=== PATIENT | female | born 1995 | race Caucasian/White ===

== ENCOUNTER 2016-12-20 22:15 | Emergency (ER) | payer SELFPAY ==
[2016-12-20 22:20] VITALS: TEMP 98.8
[2016-12-20] MEDS ORDERED: ACETAMINOPHEN 500 MG TAB PO ONE (22:54)
--- NOTE | 2016-12-20 22:57 | EDPHY ---
H & P Stated Complaint: PERRY; 13 weeks Time Seen by Provider: 12/20/16 22:43 HPI/ROS: HPI The patient presents with headache which has been present for the last 2 days which started slowly and has been constant ever since. It is a pressure like sensation that she feels mostly in her occipital region and is bandlike. She has not taken anything for the pain. She is 13 weeks and has had some nausea and vomiting with the , however it is worse over the last 2 days. She has had some difficulty sleeping because of the headache. She does not have any vision changes, photophobia, fever. She has had no complications in her . She has had a history of headaches, however this is in a different location than usual. She had an episode 2 days ago when her left hand had tingling to it, however this is resolved.. REVIEW OF SYSTEMS Constitutional: No fever, no chills. Eyes: No discharge. ENT: No sore throat. Cardiovascular: No chest pain, no palpitations. Respiratory: No cough, no shortness of breath. Gastrointestinal: No abdominal pain, no vomiting. Genitourinary: No hematuria. Musculoskeletal: No back pain. Skin: No rashes. Neurological: Positive for headache. PMHx: 13 week Soc Hx: Housed PHYSICAL General Appearance: Alert, no distress Eyes: Pupils equal and round no pallor or injection ENT, Mouth: Mucous membranes moist Respiratory: There are no retractions, lungs are clear to auscultation Cardiovascular: Regular rate and rhythm Gastrointestinal: Abdomen is soft and non-tender, no masses, bowel sounds normal Neurological: A&O, cranial nerves 2-12 intact, 5/5 strength of her upper and lower extremities which is symmetric, sensation is intact to light touch, normal finger to nose and heel to espinosa testing Skin: Warm and dry, no rashes Musculoskeletal: Neck is supple non tender Extremities: symmetrical, full range of motion Psychiatric: Patient is oriented X 3, there is no agitation Source: Patient Exam Limitations: No limitations - Personal History EDC: 06/23/17 Current Tetanus/Diphtheria Vaccine: Unsure Tetanus Vaccine Date: < 10 years - Medical/Surgical History Hx Asthma: No Hx Chronic Respiratory Disease: No Hx Diabetes: No Hx Cardiac Disease: No Hx Renal Disease: No Hx Cirrhosis: No Hx Alcoholism: No Hx HIV/AIDS: No Hx Splenectomy or Spleen Trauma: No Other PMH: medical none. surgery none - Social History Smoking Status: Never smoked Constitutional: Initial Vital Signs Temperature (C) 37.1 C 12/20/16 22:17 Heart Rate 112 H 12/20/16 22:17 Respiratory Rate 17 12/20/16 22:17 Blood Pressure 135/89 H 12/20/16 22:17 O2 Sat (%) 98 12/20/16 22:17 O2 Delivery Mode Room Air Allergies/Adverse Reactions: No Known Allergies Allergy (Verified 06/18/16 20:51) Home Medications: Medication Instructions Recorded 12/20/16 Medical Decision Making Differential Diagnosis: This is a 21-year-old female, 13 weeks who presents with headache which started slowly 3 days ago and has been constant ever since. It is a pressure like sensation in her posterior occipital region. She has a normal neurologic evaluation. She does not have any vision changes. She does have vomiting, though she has had this throughout her . Differential diagnosis includes tension type headache, migraine headache, less likely sinus venous thrombosis given normal neurologic evaluation. The patient declined a trigger-point injection. She would like to try a dose of Tylenol here. The patient improved after receiving Tylenol, she felt well enough to go home. I have encouraged her to drink plenty of fluids and take Tylenol as needed for headache. If she develops any concerning symptoms such as hand weakness, she is to return to the emergency room immediately. - Data Points Medications Given: Discontinued Medications Acetaminophen (Tylenol) 1,000 mg PO EDNOW ONE Stop: 12/20/16 22:55 Last Admin: 12/20/16 23:05 Dose: 1,000 mg Departure - Departure Disposition: Home, Routine, Self-Care Clinical Impression: Headache in Condition: Good Instructions: Tension Headache (ED) Additional Instructions: You can take Tylenol as needed for your headache. You should return to the emergency room if your worse in any way. Please follow-up with your primary care doctor in 1-2 days. Referrals: Analisa Beaver MD [Primary Care Provider] - As per Instructions
[2016-12-20 23:41] VITALS: BP 127/89; PULSE 80; RESP 16; O2SAT 97
== END 2016-12-20 23:51 | disposition home or self-care (01) ==
DX: O99.89 Other specified diseases and conditions complicating pregnancy, childbirth and the puerperium (principal); R51 Headache; Z3A.13 13 weeks gestation of pregnancy

== ENCOUNTER → 2017-02-10 | Outpatient (CLI) | payer MEDICAID | LOC: FIMAGING 10:08 | PROVIDERS: ATTEND Family Medicine | DX: Z34.92 Encounter for supervision of normal pregnancy, unspecified, second trimester (principal); Z3A.19 19 weeks gestation of pregnancy ==

== ENCOUNTER 2017-09-06 22:43 | Observation (INO) | payer MEDICAID ==
[2017-09-06] MEDS ORDERED: NS 1,000 ML IV ONE ×2 (23:03→23:04)
[2017-09-06] MEDS ORDERED: ACETAMINOPHEN 500 MG TAB PO ONE (23:41)
[2017-09-06 23:52] LABS: PLATELET COUNT 204 10^3/uL (150-400)
[2017-09-07] MEDS ORDERED: VANCOMYCIN 1.25 GM in D5W 250 ML IV ONE (00:16)
[2017-09-07] MEDS ORDERED: VANCOMYCIN 1.25 GM in NS 250 ML IV ONE (01:00)
[2017-09-07] MEDS ORDERED: NS 1,000 ML IV ONE (01:27)
[2017-09-07] MEDS ORDERED: CLINDAMYCIN 600 MG/DEXTROSE 50 ML IV ONE (01:27)
[2017-09-07] MEDS ORDERED: ONDANSETRON 4 MG/2 ML VIAL IVP PRN (02:43)
--- NOTE | 2017-09-07 03:15 | PDGENHP ---
History and Physical - Chief Complaint Left breast pain and swelling - History of Present Illness Source-patient provides history appears reliable. EMR was reviewed and case discussed with ED provider. HPI-pleasant 21-year-old female with no significant past medical history presents to the emergency department today with complaints of worsening left breast pain swelling and redness. Patient reports that she started to have symptoms earlier this morning. She subsequently developed fevers chills and some mild nausea. She the decreased oral intake as well on but has been able to keep food down. Patient denies any change in quality or color of her milk production. She does report that she had area of increased warmth and firmness over the left medial breast. It was tender to palpation. Patient reports some mild headache. No lightheadedness. History Information - Allergies/Home Medication List Allergies/Adverse Reactions: No Known Allergies Allergy (Verified 06/18/16 20:51) Home Medications: 12/20/16 [Last Taken Unknown] I have personally reviewed and updated: family history, medical history, social history, surgical history - Past Medical History no pertinent PMH - Surgical History Reports: no pertinent surgical hx - Family History Positive for: diabetes type II (Mother) - Social History Smoking Status: Never smoked Alcohol Use: None Drug Use: None Additional social history: Patient lives with her and children. Core- full Review of Systems Review of Systems: ROS: 10pt was reviewed & negative except for what was stated in HPI & below Physical Exam Physical Exam: Selected Entries 09/06/17 22:47 Blood Pressure Automatic Method Heart Rate 149 H Respiratory 20 Rate O2 Sat (%) 96 Temperature (C) 39.5 C H Blood Pressure 110/85 H Mean Arterial 93 Pressure (MAP) O2 Delivery Room Air Mode Temperature Oral Source Temp Pulse Resp BP Pulse Ox 37.9 C 125 H 20 118/67 94 09/07/17 01:57 09/07/17 01:57 09/07/17 01:57 09/07/17 01:57 09/07/17 01:57 Constitutional: no apparent distress, appears nourished, uncomfortable Eyes: PERRL, anicteric sclera, EOMI Ears, Nose, Mouth, Throat: dry mucous membranes, other (No nasal discharge), No poor dentition Cardiovascular: no murmur, rub, or gallop, tachycardia, No edema Peripheral Pulses: 2+: dorsalis-pedis (R), dorsalis-pedis (L) Respiratory: no respiratory distress, clear to auscultation Gastrointestinal: normoactive bowel sounds, soft, non-tender abdomen, no palpable masses Genitourinary: no bladder tenderness, No bowling in urethra Skin: warm, normal color, no rashes or abrasions, erythema (Left medial breast with a slight area of erythema faintly. ) Musculoskeletal: full muscle strength, no muscle tenderness, No generalized weakness Neurologic: AAOx3, sensation intact bilaterally, other (Nonfocal), No facial droop Psychiatric: interacting appropriately, not anxious, not encephalopathic, thought process linear Lab Data & Imaging Review 09/06/17 23:05 09/06/17 23:05 WBC 16.91 10^3/uL (3.80-9.50) H 09/06/17 23:05 RBC 4.88 10^6/uL (4.18-5.33) 09/06/17 23:05 Hgb 14.3 g/dL (12.6-16.3) 09/06/17 23:05 Hct 41.5 % (38.0-47.0) 09/06/17 23:05 MCV 85.0 fL (81.5-99.8) 09/06/17 23:05 MCH 29.3 pg (27.9-34.1) 09/06/17 23:05 MCHC 34.5 g/dL (32.4-36.7) 09/06/17 23:05 RDW 12.7 % (11.5-15.2) 09/06/17 23:05 Plt Count 204 10^3/uL (150-400) 09/06/17 23:05 MPV 12.9 fL (8.7-11.7) H 09/06/17 23:05 Neut % (Auto) 85.9 % (39.3-74.2) H 09/06/17 23:05 Lymph % (Auto) 8.8 % (15.0-45.0) L 09/06/17 23:05 Dewitt % (Auto) 4.6 % (4.5-13.0) 09/06/17 23:05 Eos % (Auto) 0.0 % (0.6-7.6) L 09/06/17 23:05 Baso % (Auto) 0.3 % (0.3-1.7) 09/06/17 23:05 Nucleat RBC Rel Count 0.0 % (0.0-0.2) 09/06/17 23:05 Absolute Neuts (auto) 14.52 10^3/uL (1.70-6.50) H 09/06/17 23:05 Absolute Lymphs (auto) 1.49 10^3/uL (1.00-3.00) 09/06/17 23:05 Absolute Monos (auto) 0.78 10^3/uL (0.30-0.80) 09/06/17 23:05 Absolute Eos (auto) 0.00 10^3/uL (0.03-0.40) L 09/06/17 23:05 Absolute Basos (auto) 0.05 10^3/uL (0.02-0.10) 09/06/17 23:05 Absolute Nucleated RBC 0.00 10^3/uL (0-0.01) 09/06/17 23:05 Immature Gran % 0.4 % (0.0-1.1) 09/06/17 23:05 Immature Gran # 0.07 10^3/uL (0.00-0.10) 09/06/17 23:05 VBG Lactic Acid 0.8 mmol/L (0.7-2.1) 09/07/17 02:55 Sodium 144 mEq/L (135-145) 09/06/17 23:05 Potassium 3.9 mEq/L (3.5-5.2) 09/06/17 23:05 Chloride 106 mEq/L (97-110) 09/06/17 23:05 Carbon Dioxide 22 mEq/l (22-31) 09/06/17 23:05 Anion Gap 16 mEq/L (8-16) 09/06/17 23:05 BUN 16 mg/dL (7-23) 09/06/17 23:05 Creatinine 0.8 mg/dL (0.6-1.0) 09/06/17 23:05 Estimated GFR > 60 09/06/17 23:05 Glucose 98 mg/dL (70-100) 09/06/17 23:05 Calcium 9.3 mg/dL (8.5-10.4) 09/06/17 23:05 Total Bilirubin 0.7 mg/dL (0.1-1.4) 09/06/17 23:05 AST 21 IU/L (14-46) 09/06/17 23:05 ALT 19 IU/L (9-52) 09/06/17 23:05 Alkaline Phosphatase 106 IU/L (38-126) 09/06/17 23:05 Total Protein 8.6 g/dL (6.3-8.2) H 09/06/17 23:05 Albumin 4.9 g/dL (3.5-5.0) 09/06/17 23:05 EKG additional interpertation: Tele showing sinus tachycardia in the 120s Assessment & Plan Assessment: Left mastitis - patient received initial dose of vancomycin. She is reporting improvement in her erythema and symptoms but pain is still persistent. She did experience diffuse pruritus without any rash following administration of vancomycin. She responded well to Benadryl. She had no evidence of red man syndrome. Antibiotics were changed to clindamycin. SIRS criteria-patient tachycardic with leukocytosis. Lactate is pending. Patient received 3 L IV fluid continues to remain tachycardic. Antibiotics and treatment plan as noted above. Breast feeding - discussed with patient options for pain management she is amenable to Tylenol and ibuprofen. Advised if pain worsens or she would desire something a little stronger than would recommend that she other hold off on breast feeding or pump and dump. FEN - status post 3 L IV fluid. Will continue IV hydration overnight. Electrolyte monitoring replacement if needed. Diet as tolerated. PPX - SCDs. Patient low risk for DVT. Encourage mobilization anticipate short hospital stay. COR - full Dispo - patient admitted observation status on the medical floor given her continued tachycardia status post IV fluids and need for IV antibiotics.
[2017-09-07] MEDS ORDERED: IBUPROFEN 600 MG TAB PO ONE ×2 (03:35)
[2017-09-07] MEDS: NS 1,000 ML IV SCH ×2 (04:18→22:00)
[2017-09-07] MEDS: CLINDAMYCIN 600 MG/DEXTROSE 50 ML IV SCH ×3 (10:15→22:00)
[2017-09-07] MEDS: IBUPROFEN 600 MG TAB PO PRN ×3 (10:16→23:49)
[2017-09-07] MEDS: ACETAMINOPHEN 325 MG TAB PO PRN ×2 (10:16→19:54)
--- NOTE | 2017-09-07 14:06 | HOSPPROG ---
Hospitalist Progress Note Assessment/Plan: 21y female with breast pain. Left mastitis - patient received initial dose of vancomycin. She is reporting improvement in her erythema and symptoms but pain is still persistent. She did experience diffuse pruritus without any rash following administration of vancomycin. She responded well to Benadryl. She had no evidence of red man syndrome. Antibiotics were changed to clindamycin. Blister- on nipple after pumping. wound care ordered SIRS criteria-patient tachycardic with leukocytosis. Patient received 3 L IV fluid continues to remain tachycardic. Antibiotics and treatment plan as noted above. Breast feeding - discussed with patient options for pain management she is amenable to Tylenol and ibuprofen. Advised if pain worsens or she would desire something a little stronger than would recommend that she other hold off on breast feeding or pump and dump. FEN - status post 3 L IV fluid. Electrolyte monitoring replacement if needed. Diet as tolerated. PPX - SCDs. Patient low risk for DVT. Encourage mobilization anticipate short hospital stay. COR - full Dispo - patient admitted observation status on the medical floor given her continued tachycardia status post IV fluids and need for IV antibiotics. Subjective: Feeling ok. Still having some pain. Objective: Vital Signs Temp Pulse Resp BP Pulse Ox 36.6 C 100 16 128/73 H 98 09/07/17 12:20 09/07/17 12:20 09/07/17 12:20 09/07/17 12:20 09/07/17 08:11 09/06/17 09/07/17 09/08/17 05:59 05:59 05:59 Intake Total 2800 Balance 2800 - Physical Exam Constitutional: no apparent distress, appears nourished Eyes: PERRL, anicteric sclera Ears, Nose, Mouth, Throat: moist mucous membranes, hearing normal Cardiovascular: No JVD, No edema Respiratory: no respiratory distress, no rales or rhonchi Gastrointestinal: No tenderness, No ascites Skin: warm, erythema Musculoskeletal: full muscle strength, no joint effusions Neurologic: AAOx3 Psychiatric: interacting appropriately, not anxious, not encephalopathic ICD10 Worksheet Patient Problems: Problems Problem Status Onset Mastitis Acute - ICD10 Problem Qualifiers (1) Mastitis
[2017-09-08 03:39] VITALS: TEMP 97.9; O2SAT 95
[2017-09-08] MEDS: CLINDAMYCIN 600 MG/DEXTROSE 50 ML IV SCH (06:01)
[2017-09-08] MEDS: IBUPROFEN 600 MG TAB PO PRN (08:51)
[2017-09-08 09:21] VITALS: BP 118/75; PULSE 92; RESP 16
--- NOTE | 2017-09-08 10:41 | ASMTCMCOM ---
CM Note CM Note Notes: Spoke w/[employer], pt needs RX for mastitis. [employer] asked CM to call [facility] to determine cost of abx. CM spoke w/[place], abx will be 21.39. Pt agrees with cost and will pay by credit card which [employer] already has on file. They will bring abx to pt's room. CM available for any other needs. Date Signed: 09/08/2017 10:40 AM Electronically Signed By:Bridget Harvey RN
--- NOTE | 2017-09-08 12:54 | WOCRNPDOC ---
WOCRN Advanced Assessment Note - Skin Integrity Problem, Advanced Assess Left Breast Dressing Type: Open to Air Wound Bed Constitution: De-roofed Purulent Blister, Intact Serous Filled Blister Site Measurement - Head-to-Toe Length X Width X Depth (cm): Purulent deroofed blister at 11 oclock 1x1x0.1. Intact serous blister at 2 oclock 05.x0.5. Skin Integrity Problem Comment: Mastitis related blisters on left breast. Purulent deroofed blister at 11 oclock and intact serous blister at 2 oclock, both open to air. Wound Care has no further recommendations. Blisters will likely resolve as mastitis resolves. Brianne Wan ANTHROPOLOGIST in room.
--- NOTE | 2017-09-08 13:20 | GDS ---
[f rep st] DISCHARGE SUMMARY DISCHARGE DIAGNOSIS: Mastitis. PHYSICAL EXAMINATION: GENERAL: The patient is alert. VITAL SIGNS: Afebrile at 36.6, pulse is 92, respiratory rate 16, blood pressure is 118/75. She is saturating 95% on room air. I have seen and e valuated the patient on the day of discharge. HOSPITAL COURSE: The patient is a 21-year-old female who presented to the emergency room with compla ints of left breast erythema and tenderness. She was evaluated and diagnosed with mastitis. During this hospitalization, she was treated with IV antibiotic therapy. Her condition is significantly imp roved. She is responding well to clindamycin. Her erythema has resolved. She does have 2 residual blisters on her left nipple. Wound care has been ordered. She is eager to be discharged home. She will be discharged home independently and follow up in the outpatient setting with her primary care grant ratliff. DISCHARGE MEDICATIONS: I have provided her a prescription for clindamycin 300 mg p.o. t.i.d. for a t otal of 10 days. This prescription has been filled prior to disposition. /[id number]/MODL
--- NOTE | 2017-09-15 07:50 | EDV ---
[f rep st] EMERGENCY DEPARTMENT REPORT DATE OF SERVICE: 09/07/2017 CHIEF COMPLAINT: Left breast pain and swelling. HISTORY OF PRESENT ILLNESS: This is a 21-year-old female who is healthy and with a 10-wee k old baby, who presents with left breast pain and swelling which has been present for the last 1 day . She awoke this morning feeling mild fevers and chills with nausea. She then noticed that her left b reast was tender when she was breast feeding. She has no prior history of similar. She denies any na usea or vomiting. REVIEW OF SYMPTOMS: A 10-point review of systems was conducted and is negative, except as detailed a doe. PAST MEDICAL HISTORY: , no history of diabetes. SOCIAL HISTORY: Nonsmoker. Lives at home with her . FAMILY HISTORY: Remarkable for type 2 diabetes. PHYSICAL EXAMINATION: VITAL SIGNS: Remarkable for fever with tachycardia. HEAD: Atraumatic. EYES: Pupils equal, round and reactive to light. EARS, NOSE AND THROAT: Mucous membranes are dry. CARDIO VASCULAR: Tachycardic rate with regular rhythm. RESPIRATORY: Lungs are clear bilaterally. ABDOMEN : Soft, nontender, nondistended. SKIN: Left breast with tenderness, warmth, erythema medially with out any areas of fluctuance. LABORATORY DATA: White blood cell count 17,000. The remainder of CBC is unremarkable. Chem-7 is un remarkable. EKG demonstrates normal sinus rhythm with tachycardia in the 120s. MEDICAL DECISION MAKING: This is a healthy 21-year-old female who is breast feeding in the postpartu m phase, who presents with 1 day of left breast swelling, pain, fever. [facility] is very tachycardic and febrile. She has received antipyretics and given 2 li ters of IV fluid. Labs were checked and did reveal leukocytosis. She was given a dose of vancomycin that would cause itching and redness, so she was changed to clindamycin. Breast milk culture was pe rformed. Lactaid was checked and was normal. Given the patient's continued tachycardia after receivi ng 3 liters of IV fluid, she will be admitted for IV hydration overnight. I have discussed the case with Dr. Alexander, the hospitalist. CONDITION: Stable. DIAGNOSES: Left breast mastitis, leukocytosis, tachycardia. STATUS: acute. /[id number]/MODL
== END 2017-09-08 12:25 | disposition home or self-care (01) ==
LOC: FLD 09-07 03:57 → FOB 09-07 14:56
PROVIDERS: ADMIT Family Medicine; ATTEND Family Medicine
DX: N61.0 Mastitis without abscess (principal); S20.112A Abrasion of breast, left breast, initial encounter; X50.9XXA Other and unspecified overexertion or strenuous movements or postures, initial encounter
CPT/HCPCS: G0378 ×2; J1200; J3370

== ENCOUNTER → 2018-12-23 | Outpatient (CLI) | payer MEDICAID | LOC: FIMAGING 13:58 ==